=== PATIENT | male | born 2000 | race American Indian/Alaskan Native ===

== ENCOUNTER 2019-04-19 16:47 | Emergency (ER) | payer SELFPAY ==
--- NOTE | 2019-04-19 17:46 | Emergency Department Report ---
Blank Doc - Documentation Documentation: 18-year-old male that presents with URI symptoms and sore throat. This initial assessment/diagnostic orders/clinical plan/treatment(s) is/are subject to change based on patient's health status, clinical progression and re- assessment by fellow clinical providers in the ED. Further treatment and workup at subsequent clinical providers discretion. Patient/guardians urged not to elope from the ED as their condition may be serious if not clinically assessed and managed. Initial orders include: 1- Patient sent to [facility] for further evaluation and treatment 2- CXR 3- strep swab
[2019-04-19 17:47] VITALS: BP 116/64
--- NOTE | 2019-04-19 18:07 | XRay Report ---
CHEST 2 VIEWS INDICATION / CLINICAL INFORMATION: Cough. COMPARISON: None available. FINDINGS: SUPPORT DEVICES: None. HEART / MEDIASTINUM: The heart size and pulmonary vasculature are normal. LUNGS / PLEURA: No significant pulmonary or pleural abnormality. No pneumothorax. ADDITIONAL FINDINGS: No significant additional findings. IMPRESSION: No acute findings. Signer Name: Anmol Guzman MD Signed: 04/19/2019 6:03 PM Workstation Name: [id number]
[2019-04-19] MEDS ORDERED: dexAMETHasone 4 MG/ML VIAL PO ONE (19:03)
--- NOTE | 2019-04-19 19:22 | Emergency Department Report ---
ED ENT HPI - General Chief complaint: Upper Respiratory Infection Stated complaint: SORE THROAT/COUGHING UP BLOOD Time Seen by Provider: 04/19/19 17:46 Source: patient Mode of arrival: Ambulatory Limitations: No Limitations - History of Present Illness Initial comments: 18-year-old -Lithuanian mellitus much department complaining of a few day history of odynophagia and white spots in the back of his throat with a mild fever sensation. Reports no chest pain or palpitation. No nausea or vomiting. Reports no rashes or dysuria has not tried any natx-shj-adjnejo treatments but symptoms are worse when he eats and drinks. -: Gradual Location: throat Severity: mild, moderate Quality: dull Consistency: constant Worsens with: swallowing, eating Associated Symptoms: sore throat - Related Data Previous Rx's Medication Instructions Recorded Last Taken Type Amoxicillin [Amoxicillin TAB] 875 mg PO BID #20 tablet 04/19/19 Unknown Rx Chlorhexidine Mouthwash [Peridex] 15 ml MM BID #473 bottle 04/19/19 Unknown Rx Lidocaine Viscous 2% 5 ml MM Q3H PRN #120 udc 04/19/19 Unknown Rx Allergies Allergy/AdvReac Type Severity Reaction Status Date / Time No Known Allergies Allergy Unverified 04/19/19 17:05 ED Dental HPI - General Chief complaint: Upper Respiratory Infection Stated complaint: SORE THROAT/COUGHING UP BLOOD Time Seen by Provider: 04/19/19 17:46 Source: patient Mode of arrival: Ambulatory Limitations: No Limitations - Related Data Previous Rx's Medication Instructions Recorded Last Taken Type Amoxicillin [Amoxicillin TAB] 875 mg PO BID #20 tablet 04/19/19 Unknown Rx Chlorhexidine Mouthwash [Peridex] 15 ml MM BID #473 bottle 04/19/19 Unknown Rx Lidocaine Viscous 2% 5 ml MM Q3H PRN #120 udc 04/19/19 Unknown Rx Allergies Allergy/AdvReac Type Severity Reaction Status Date / Time No Known Allergies Allergy Unverified 04/19/19 17:05 ED Review of Systems ROS: Stated complaint: SORE THROAT/COUGHING UP BLOOD Other details as noted in HPI Comment: All other systems reviewed and negative ENT: throat pain. denies: dental pain, hearing loss, congestion ED Past Medical Hx - Past Medical History Previous Medical History?: No - Surgical History Past Surgical History?: No - Social History Smoking Status: Current Every Day Smoker Substance Use Type: None - Medications Home Medications: Home Medications Medication Instructions Recorded Confirmed Last Taken Type Amoxicillin [Amoxicillin TAB] 875 mg PO BID #20 tablet 04/19/19 Unknown Rx Chlorhexidine Mouthwash [Peridex] 15 ml MM BID #473 bottle 04/19/19 Unknown Rx Lidocaine Viscous 2% 5 ml MM Q3H PRN #120 udc 04/19/19 Unknown Rx ED Physical Exam - General Limitations: No Limitations General appearance: alert, in no apparent distress - Head Head exam: Present: atraumatic, normocephalic - Eye Eye exam: Present: normal appearance, PERRL, EOMI Pupils: Present: normal accommodation - ENT ENT exam: Present: mucous membranes moist, other (retropharynx with bilateral exudate noted. There is left tonsillar lymphadenopathy noted. Tongue and uvula are midline airway is patent.) - Neck Neck exam: Present: normal inspection, full ROM, lymphadenopathy. Absent: tenderness, meningismus, thyromegaly - Respiratory Respiratory exam: Present: normal lung sounds bilaterally. Absent: respiratory distress, wheezes, rales, chest wall tenderness, accessory muscle use, decreased breath sounds - Cardiovascular Cardiovascular Exam: Present: regular rate, normal rhythm. Absent: bradycardia, tachycardia, irregular rhythm, systolic murmur, diastolic murmur, rubs, gallop - GI/Abdominal GI/Abdominal exam: Present: soft, normal bowel sounds. Absent: distended, tenderness, guarding, rigid, hyperactive bowel sounds, hypoactive bowel sounds, organomegaly, mass, pulsatile mass - Rectal Rectal exam: Present: deferred - Extremities Exam Extremities exam: Present: normal inspection - Back Exam Back exam: Present: normal inspection - Neurological Exam Neurological exam: Present: alert, oriented X3 - Psychiatric Psychiatric exam: Present: normal affect, normal mood - Skin Skin exam: Present: warm, dry, intact, normal color. Absent: rash ED Course Vital Signs 04/19/19 17:46 Temperature 99.1 F Pulse Rate 72 Respiratory 18 Rate Blood Pressure 116/64 O2 Sat by Pulse 98 Oximetry ED Medical Decision Making - Medical Decision Making 18-year-old -Lithuanian male with no odynophagia with a exudate. Spent rationing Josias for the past few weeks but more pertinent this last week. Noticed some lymphadenopathy on examination plan is to call him with antibiotics due to the duration of his sickness and the likelihood that this makes microfibrillar infestation. - Differential Diagnosis Pharyngitis, allergic rhinitis, otitis, reflux laryngitis Critical care attestation.: If time is entered above; I have spent that time in minutes in the direct care of this critically ill patient, excluding procedure time. ED Disposition Clinical Impression: Pharyngitis Disposition: - TO HOME OR SELFCARE Is pt being admited?: No Does the pt Need Aspirin: No Condition: Stable Instructions: Pharyngitis (ED) Referrals: [facility] [Provider Group] - 3-5 Days
== END 2019-04-19 19:30 | disposition home or self-care (01) ==
LOC: ED 16:47
DX: J02.9 Acute pharyngitis, unspecified (principal); F17.200 Nicotine dependence, unspecified, uncomplicated; Z79.899 Other long term (current) drug therapy
CPT/HCPCS: 71046; 99283; J1100

== ENCOUNTER 2019-05-14 10:15 | Emergency (ER) | payer SELFPAY ==
[2019-05-14 11:20] LABS: Basophils % (Auto) 0.5 % (0.0-1.8); Hematocrit 45.3 % (35.5-45.6); Lymphocytes # (Auto) 1.1 K/mm3 (1.2-5.4); Lymphocytes % (Auto) 26.7 % (13.4-35.0); Mean Corpuscular HGB Conc 33 % (32-34); Mean Corpuscular Volume 90 fl (84-94); Monocytes # (Auto) 0.4 K/mm3 (0.0-0.8); Monocytes % (Auto) 9.5 % (0.0-7.3); Platelet Count 170 K/mm3 (140-440); Red Blood Count 5.01 M/mm3 (3.65-5.03); Red Cell Distribution Width 12.6 % (13.2-15.2)
--- NOTE | 2019-05-14 11:46 | Cat Scan Report ---
CT ABDOMEN AND PELVIS WITHOUT CONTRAST HISTORY: Right lower quadrant pain for 24 hours COMPARISON: None. TECHNIQUE: Axial CT images were obtained through the abdomen and pelvis without IV contrast. Sagittal and coronal reformatted images. All CT scans at this location are performed using CT dose reduction for ALARA by means of automated exposure control. FINDINGS: CT ABDOMEN: Lung Bases: Clear. Liver: No significant abnormality. Biliary: No significant abnormality. Spleen: No significant abnormality. Unenlarged. Pancreas: No significant abnormality. Adrenals: No significant abnormality. Kidneys: Punctate bilateral renal calyceal stones are suspected. No ureteral stones or hydronephrosis are identified. Lymphatics: No lymphadenopathy. Vasculature: No significant abnormality. Bowel/Peritoneum: No significant abnormality. No free air. No free fluid. The appendix is not confide ntly identified in the right lower quadrant. No obvious inflammatory changes. CT PELVIS: : Bladder and distal ureters are within normal limits. Osseous Structures: No significant abnormality. Additional Findings: None IMPRESSION: Punctate bilateral renal stones are suspected. No obvious ureteral stones or obstructive uropathy. The appendix is not confidently identified. No inflammatory changes are suggested in the right lower quadrant. If further evaluation is needed, CT with IV and oral contrast would provide the most inform ation. Signer Name: Lance Navarrete Jr, MD Signed: 05/14/2019 11:41 AM Workstation Name: [id number]
[2019-05-14 11:55] LABS: Alanine Aminotransferase 8 units/L (7-56); Albumin 4.3 g/dL (3.9-5); BUN/Creatinine Ratio 14; Blood Urea Nitrogen 13 mg/dL (9-20); Calcium 9.6 mg/dL (8.4-10.2); Hemolysis Index 3
--- NOTE | 2019-05-14 11:55 | Event Note ---
Face to Face: For this encounter I have reviewed the PA/OUTSIDE SALES EXECUTIVE documentation, treatment plan, medical decision making, and I had face to face time with this patient. I evaluated Mr. Bee. He is a healthy 18-year-old male who's had abdominal pain intermittently for the last week. He endorsed to me that he has had anorexia and pain with movement. Pain is located in the periumbilical region. I recommended CT abdomen and pelvis and CBC to rule out appendicitis. Without Inflammatory changes on CT and absence of leukocytosis, I felt that essentially acute appendicitis has been ruled out. I provided extensive return precautions to Mr. Bee. I suspect constipation as the cause of his pain. I recommended [id number] laxatives.
--- NOTE | 2019-05-14 12:28 | Emergency Department Report ---
ED Abdominal Pain HPI - General Chief Complaint: Abdominal Pain Stated Complaint: STOMACH PAIN,VOMITTING Time Seen by Provider: 05/14/19 10:33 Source: patient Mode of arrival: Ambulatory Limitations: No Limitations - History of Present Illness Initial Comments: 18-year-old Gabonese male just much department complaining of abdominal pain has been going on off and on since . Reports occasional nausea associated with a decreased appetite and pain with certain positions to the lower abdomen. Reports no hemoptysis no hematemesis, hematochezia. Postop fever, chills, sweats. No chest pain or palpitations. MD Complaint: abdominal pain Radiation: none Migration to: no migration Severity: mild Quality: dull Consistency: constant Improves With: nothing Worsens With: nothing Associated Symptoms: nausea, anorexia. denies: constipation, hematemesis, melena, hematuria - Related Data Previous Rx's Medication Instructions Recorded Last Taken Type Amoxicillin [Amoxicillin TAB] 875 mg PO BID #20 tablet 04/19/19 Unknown Rx Chlorhexidine Mouthwash [Peridex] 15 ml MM BID #473 bottle 04/19/19 Unknown Rx Lidocaine Viscous 2% 5 ml MM Q3H PRN #120 udc 04/19/19 Unknown Rx Allergies Allergy/AdvReac Type Severity Reaction Status Date / Time No Known Allergies Allergy Verified 05/14/19 10:17 ED Review of Systems ROS: Stated complaint: STOMACH PAIN,VOMITTING Other details as noted in HPI Comment: All other systems reviewed and negative ED Past Medical Hx - Past Medical History Previous Medical History?: No - Surgical History Past Surgical History?: No - Social History Smoking Status: Current Every Day Smoker Substance Use Type: None - Medications Home Medications: Home Medications Medication Instructions Recorded Confirmed Last Taken Type Amoxicillin [Amoxicillin TAB] 875 mg PO BID #20 tablet 04/19/19 Unknown Rx Chlorhexidine Mouthwash [Peridex] 15 ml MM BID #473 bottle 04/19/19 Unknown Rx Lidocaine Viscous 2% 5 ml MM Q3H PRN #120 udc 04/19/19 Unknown Rx ED Physical Exam - General Limitations: No Limitations General appearance: alert, in no apparent distress - Head Head exam: Present: atraumatic, normocephalic - Eye Eye exam: Present: normal appearance, PERRL, EOMI - ENT ENT exam: Present: mucous membranes moist - Neck Neck exam: Present: normal inspection - Respiratory Respiratory exam: Present: normal lung sounds bilaterally. Absent: respiratory distress - Cardiovascular Cardiovascular Exam: Present: regular rate, normal rhythm. Absent: systolic murmur, diastolic murmur, rubs, gallop - GI/Abdominal GI/Abdominal exam: Present: soft, tenderness, normal bowel sounds. Absent: organomegaly, mass, pulsatile mass - Rectal Rectal exam: Present: deferred - Extremities Exam Extremities exam: Present: normal inspection - Back Exam Back exam: Present: normal inspection - Neurological Exam Neurological exam: Present: alert, oriented X3 - Psychiatric Psychiatric exam: Present: normal affect, normal mood - Skin Skin exam: Present: warm, dry, intact, normal color. Absent: rash ED Course Vital Signs 05/14/19 10:22 Temperature 98.8 F Pulse Rate 84 Respiratory 16 Rate Blood Pressure 118/71 O2 Sat by Pulse 100 Oximetry ED Medical Decision Making - Lab Data Result diagrams: 05/14/19 10:58 05/14/19 10:58 - Radiology Data Radiology results: [place] [address] Cat Scan Report Signed Patient: HUNTER HOLLINGSWORTH MR#: [id number] : 2000 Acct:[id number] Age/Sex: 18 / M ADM Date: 05/14/19 Loc: ED Attending Dr: Ordering Physician: MARYANNE CURRY Date of Service: 05/14/19 Procedure(s): CT abdomen pelvis wo con Accession Number(s): [id number] cc: MARYANNE CURRY CT ABDOMEN AND PELVIS WITHOUT CONTRAST HISTORY: Right lower quadrant pain for 24 hours COMPARISON: None. TECHNIQUE: Axial CT images were obtained through the abdomen and pelvis without IV contrast. Sagittal and coronal reformatted images. All CT scans at this location are performed using CT dose reduction for ALARA by means of automated exposure control. FINDINGS: CT ABDOMEN: Lung Bases: Clear. Liver: No significant abnormality. Biliary: No significant abnormality. Spleen: No significant abnormality. Unenlarged. Pancreas: No significant abnormality. Adrenals: No significant abnormality. Kidneys: Punctate bilateral renal calyceal stones are suspected. No ureteral stones or hydronephrosis are identified. Lymphatics: No lymphadenopathy. Vasculature: No significant abnormality. Bowel/Peritoneum: No significant abnormality. No free air. No free fluid. The appendix is not confidently identified in the right lower quadrant. No obvious inflammatory changes. CT PELVIS: : Bladder and distal ureters are within normal limits. Osseous Structures: No significant abnormality. Additional Findings: None IMPRESSION: Punctate bilateral renal stones are suspected. No obvious ureteral stones or obstructive uropathy. The appendix is not confidently identified. No inflammatory changes are suggested in the right lower quadrant. If further evaluation is needed, CT with IV and oral contrast would provide the most information. Signer Name: Lance Navarrete Jr, MD Signed: 05/14/2019 11:41 AM Workstation Name: [id number] Transcribed By: TTR Dictated By: LANCE NAVARRETE JR, MD Electronically Authenticated By: LANCE NAVARRETE JR, MD Signed Date/Time: 05/14/19 1141 DD/ 1139 TD/TT: - Medical Decision Making This patient presents with abdominal pain of unclear etiology. A CT scan was performed to evaluate for potential causes of the abdominal pain, however, neither the clinical exam nor the CT has identified an emergent etiology for the abdominal pain. Specifically, given the benign exam, the laboratory studies, and unremarkable CT, I have a very low suspicion for appendicitis, ischemic bowel, bowel perforation, or any other life threatening disease. I have discussed with the patient the level of uncertainty with undifferentiated abdominal pain and clearly explained the need to follow-up as noted on the discharge instructions, or return to the Emergency Department immediately if the pain worsens, develops fever, persistent and uncontrollable vomiting, or for any new symptoms or concerns. Critical care attestation.: If time is entered above; I have spent that time in minutes in the direct care of this critically ill patient, excluding procedure time. ED Disposition Clinical Impression: Renal stone Disposition: DC-01 TO HOME OR SELFCARE Is pt being admited?: No Does the pt Need Aspirin: No Condition: Stable Instructions: Renal Colic (ED), Kidney Stones (ED), Flank Pain (ED) Referrals: TOMY GUZMAN MD [Staff Physician] - 3-5 Days
[2019-05-14 12:49] VITALS: BP 115/72
== END 2019-05-14 12:50 | disposition home or self-care (01) ==
LOC: ED 10:15
DX: N20.0 Calculus of kidney (principal); F17.200 Nicotine dependence, unspecified, uncomplicated; Z79.899 Other long term (current) drug therapy
CPT/HCPCS: 36415; 74176; 80053; 85025